=== PATIENT | female | born 2005 | race Caucasian/White ===

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

== ENCOUNTER 2024-02-23 08:02 | Emergency (ER) | payer MEDICAID ==
[2024-02-23] MEDS: LORazepam 1 MG Tab PO ONE (08:18)
[2024-02-23 08:59] LABS: BASOPHILS PERCENT AUTO 0.2 % (0.2-1.2); EOSINOPHILS ABSOLUTE AUTO 0.2 x10^3/uL (0.0-0.5); EOSINOPHILS PERCENT AUTO 2.1 % (0.0-4.0); HEMATOCRIT 39.1 % (33.0-47.0); HEMOGLOBIN 12.3 g/dL (12.0-16.0); IMMATURE GRAN ABSOLUTE AUTO 0.05 x10^3/uL (0.00-0.07); LYMPHOCYTES ABSOLUTE AUTO 1.8 x10^3/uL (1.0-4.8); LYMPHOCYTES PERCENT AUTO 19.7 % (25.0-50.0); MEAN CORPUSCULAR HEMOGLOBIN 25.3 pg (26.0-32.0); MEAN CORPUSCULAR HGB CONC 31.5 g/dL (32.0-36.0); MEAN CORPUSCULAR VOLUME 80.3 fL (78.0-93.0); MONOCYTES ABSOLUTE AUTO 0.5 x10^3/uL (0.0-0.8); MONOCYTES PERCENT AUTO 5.5 % (2.0-11.0); NEUTROPHILS ABSOLUTE AUTO 6.7 x10^3/uL (1.8-7.7); PLATELET COUNT,PLT 292 x10^3/uL (130-400); RED BLOOD CELL COUNT 4.87 x10^6/uL (4.00-5.50); WHITE BLOOD CELL COUNT,WBC 9.3 x10^3/uL (4.0-10.0)
[2024-02-23 09:27] LABS: A/G RATIO 0.83; ALANINE AMINOTRANSFERASE,ALT 13 U/L (14-59); ALBUMIN 3.5 g/dL (3.4-5.0); ALKALINE PHOSPHATASE 82 U/L (46-116); ASPARTATE AMNIOTRANSFERASE,AST 19 U/L (15-37); BILIRUBIN TOTAL 0.5 mg/dL (0.2-1.0); BLOOD UREA NITROGEN,BUN 15 mg/dL (7-18); CALCIUM 9.1 mg/dL (8.5-10.1); CARBON DIOXIDE,CO2 29 mmol/L (21-32); CHLORIDE,CL 109 mmol/L (98-107); GLUCOSE RANDOM 89 mg/dL (70-99); POTASSIUM,K 4.7 mmol/L (3.5-5.1); PROTEIN TOTAL,TP 7.7 g/dL (6.4-8.2); SODIUM,NA 146 mmol/L (136-145)
[2024-02-23 09:30] LABS: ANION GAP 12.7 mmol/L (5-15); ESTIMATED GFR 83 mL/min (>=60)
== END 2024-02-23 09:44 | disposition home or self-care (01) ==
LOC: VM.ED 08:02
DX: R07.89 Other chest pain (principal); F41.9 Anxiety disorder, unspecified; Z79.899 Other long term (current) drug therapy
CPT/HCPCS: 36415; 80053; 84443; 84484; 85025; 99285; A9270-GY

== ENCOUNTER 2024-06-29 08:45 | Emergency (ER) | payer MEDICAID ==
[2024-06-30 13:31] LABS: C.TRACHOMATIS BY TMA Negative (Negative); N.GONORRHOEAE BY TMA Negative (Negative); SOURCE Genital
== END 2024-06-29 09:16 | disposition home or self-care (01) ==
LOC: VM.ED 08:45
DX: L29.2 Pruritus vulvae (principal); Z79.899 Other long term (current) drug therapy
CPT/HCPCS: 87210; 87491; 87591; 99283

== ENCOUNTER 2024-08-16 19:20 | Emergency (ER) | payer MEDICARE, MEDICAID ==
[2024-08-16] MEDS: Ibuprofen 200 MG Tab PO ONE (19:42)
[2024-08-16] MEDS: Acetaminophen 500 MG Tab PO ONE (19:42)
[2024-08-16] MEDS: Ondansetron 4 MG Tab.DIS PO ONE (19:42)
[2024-08-16] MEDS: Take Home: Ondansetron 4 MG Tab.DIS, 5 Tab Pack PO ONE (20:11)
== END 2024-08-16 20:18 | disposition home or self-care (01) ==
LOC: VM.ED 19:20
DX: B34.9 Viral infection, unspecified (principal); Z79.899 Other long term (current) drug therapy
CPT/HCPCS: 71046; 99283; 99284; A9270-GY; Q0162

== ENCOUNTER 2025-03-12 13:38 | Emergency (ER) | payer MEDICARE, MEDICAID | END 2025-03-12 14:55 | disposition home or self-care (01) | LOC: VM.ED 13:38 → SUPCPDRO 13:38 → VM.ED 14:55 | DX: K52.9 Noninfective gastroenteritis and colitis, unspecified (principal); Z79.899 Other long term (current) drug therapy | CPT/HCPCS: 99283 ==